=== PATIENT | female | born 1950 | race Caucasian/White ===

== ENCOUNTER 2016-09-09 22:27 | Emergency (ER) | payer OTHER ==
[~2016-09-09] VITALS: Ht 157.5 cm; Wt 65.9 kg
[2016-09-09] MEDS ORDERED: KETOROLAC TROMETHAMINE 60 MG/2 ML VIAL IM ONE (23:30)
[2016-09-09] MEDS ORDERED: LORazepam 1 MG TABLET PO ONE (23:30)
[2016-09-10 00:07] VITALS: BP 138/78
== END 2016-09-10 01:01 | disposition home or self-care (01) ==
LOC: EMS 22:28
DX: M54.31 Sciatica, right side (principal); Z88.5 Allergy status to narcotic agent; Z88.8 Allergy status to other drugs, medicaments and biological substances
CPT/HCPCS: 73502; 96372; 99284; J1885